=== PATIENT | female | born 1970 | race Caucasian/White ===

== ENCOUNTER 2019-08-15 15:31 | Emergency (ER) | payer OTHER ==
[~2019-08-15] VITALS: Ht 157.5 cm; Wt 58.5 kg
[~2019-08-15 15:31] MED LIST: CLONAZEPAM; CLONAZEPAM PO; FISHOIL; HYDROCODON-ACE1 EAC7; LEVOTHROID75 MCG; NAPROXEN DELAY500 M1 PO; VIT B 12; VIT D3; VIT E; VIT K
[2019-08-15] MEDS ORDERED: NOHOMEMEDICATIONS (15:42)
[2019-08-15] MEDS ORDERED: NORCO 5-325 TA1 EAC1 PO (16:54)
[2019-08-15] MEDS ORDERED: KEFLEX500 M1 PO (16:54)
[2019-08-15] MEDS ORDERED: NAPROSYN500 MG PO (16:54)
[2019-08-15 17:14] VITALS: BP 133/77
== END 2019-08-15 17:15 | disposition home or self-care (01) ==
LOC: M.ERS 15:31
DX: S02.2XXA Fracture of nasal bones, initial encounter for closed fracture (principal); S01.81XA Laceration without foreign body of other part of head, initial encounter; S16.1XXA Strain of muscle, fascia and tendon at neck level, initial encounter; F41.9 Anxiety disorder, unspecified; E03.9 Hypothyroidism, unspecified; G89.29 Other chronic pain; W18.39XA Other fall on same level, initial encounter; Y93.89 Activity, other specified; Y92.89 Other specified places as the place of occurrence of the external cause; Y99.8 Other external cause status

== ENCOUNTER 2019-09-06 16:34 | Emergency (ER) | payer OTHER ==
[~2019-09-06] VITALS: Ht 157.5 cm; Wt 49.9 kg
[~2019-09-06 16:34] MED LIST changes: +KEFLEX500 M1 PO; +NAPROSYN500 MG PO; +NOHOMEMEDICATIONS; +NORCO 5-325 TA1 EAC1 PO
[2019-09-06] MEDS ORDERED: AMOXICILLIN 50500 MG PO (16:52)
[2019-09-06 17:20] VITALS: BP 115/80
== END 2019-09-06 17:22 | disposition home or self-care (01) ==
LOC: M.ERS 16:34
DX: K04.7 Periapical abscess without sinus (principal); F41.9 Anxiety disorder, unspecified; G89.29 Other chronic pain; M54.2 Cervicalgia; E03.9 Hypothyroidism, unspecified; Z98.890 Other specified postprocedural states

== ENCOUNTER 2019-09-22 11:18 | Emergency (ER) | payer OTHER ==
[~2019-09-22] VITALS: Ht 157.5 cm; Wt 54.4 kg
[~2019-09-22 11:18] MED LIST changes: +AMOXICILLIN 50500 MG PO
[2019-09-22] MEDS ORDERED: NORCO 5-325 TA1 EAC1 PO (12:58)
[2019-09-22 14:44] VITALS: BP 146/70
--- NOTE | 2019-09-22 18:15 | EKG ---
[place] [address] ELECTROCARDIOGRAM REPORT Name: REINIER MURRAYICIPushpa Barrow Room: [facility]#: [id number] Admission: 09/22/19 Attend Phys: Discharge: 09/22/19 Date of : 70 Report #: [id number] THIS REPORT FOR: //name// [facility] ED Test Date: 2019-09-22 Test Time: 11:46:19 Pat Name: OSMAN MURRAY Department: Room: Gender: F Relationship Mgr: : 1970 Requested By: Jasson Morgan Order Number: [id number] MD: Uri Bolanos Measurements Intervals [place] Rate: 96 P: 81 CT: 116 QRS: 56 QRSD: 82 T: 62 QT: 326 QTc: 412 Interpretive Statements Sinus rhythm Borderline short CT interval Consider left ventricular hypertrophy Compared to ECG 10/09/2011 23:06:13 Sinus tachycardia no longer present Atrial premature complex(es) no longer present Electronically Signed On 09-22-2019 18:15:14 CDT by Uri Bolanos [email or web address] <ELECTRONICALLY SIGNED> By: Uri Bolanos MD, FACC 09/22/19 1815 1146 1146 Uri Bolanos MD, [facility] /EPI
== END 2019-09-22 14:45 | disposition home or self-care (01) ==
LOC: M.ERS 11:18
DX: S22.31XA Fracture of one rib, right side, initial encounter for closed fracture (principal); F41.9 Anxiety disorder, unspecified; E03.9 Hypothyroidism, unspecified; G89.29 Other chronic pain; X50.9XXA Other and unspecified overexertion or strenuous movements or postures, initial encounter; Y93.89 Activity, other specified; Y92.89 Other specified places as the place of occurrence of the external cause; Y99.8 Other external cause status

== ENCOUNTER 2019-11-13 07:06 | Emergency (ER) | payer OTHER ==
[~2019-11-13] VITALS: Ht 157.5 cm; Wt 59.0 kg
[2019-11-13 07:41] LABS: ABSOLUTE BASOPHILS 0.2 thou/uL (0.0-0.2); ABSOLUTE EOSINOPHILS 0.1 thou/uL (0.0-0.7); ABSOLUTE LYMPHOCYTES 1.4 thou/uL (0.8-5.3); ABSOLUTE MONOCYTES 0.5 thou/uL (0.0-1.2); ABSOLUTE NEUTROPHILS 4.6 thou/uL (1.6-8.1); BASOPHILS 2.6 %; EOSINOPHILS 1.6 %; HEMATOCRIT 43.8 % (37.0-47.0); HEMOGLOBIN 15.2 gm/dL (12.0-15.0); MCH 29.1 pg (26.0-34.0); MCHC 34.8 g/dL (28.0-37.0); MCV 83.6 fL (80.0-100.0); MONOCYTES 7.5 %; MPV 7.9 fl. (7.2-11.1); NUCLEATED RBCS 1 /100WBC; PLATELET COUNT* 277 thou/uL (150-400); POLYS 67.3 %; RBC 5.24 mil/uL (4.20-5.00); RDW-CV 12.9 % (10.5-14.5); WBC 6.8 thou/uL (4.0-11.0)
[2019-11-13 07:43] LABS: CALCIUM 8.9 mg/dL (8.5-10.1); CREATININE 0.7 mg/dL (0.6-1.3); POTASSIUM 3.8 mmol/L (3.5-5.1)
[2019-11-13 07:49] LABS: APTT 23.3 Seconds (25.0-31.3); PROTIME 10.3 Seconds (9.20-11.50)
[2019-11-13 07:53] LABS: ALBUMIN 3.9 g/dL (3.4-5.0); TOTAL BILIRUBIN 0.4 mg/dL (<0.1-1.0); TOTAL PROTEIN 7.5 g/dL (6.4-8.2)
[2019-11-13 08:57] VITALS: BP 117/68
--- NOTE | 2019-11-13 14:31 | EKG ---
[place] [address] ELECTROCARDIOGRAM REPORT Name: OSMAN MURRAY Room: [facility]#: [id number] Admission: 11/13/19 Attend Phys: Discharge: 11/13/19 Date of : 70 Report #: [id number] THIS REPORT FOR: //name// [facility] ED Test Date: 2019-11-13 Test Time: 07:35:28 Pat Name: OSMAN MURRAY Department: Room: Gender: F Marketing Information Manager: : 1970 Requested By: Roberto Carlos Shah Order Number: [id number] MD: Shar Preston Measurements Intervals [place] Rate: 87 P: 73 VA: 117 QRS: 57 QRSD: 88 T: 66 QT: 354 QTc: 426 Interpretive Statements Sinus rhythm Borderline short VA interval Left atrial enlargement Compared to ECG 09/22/2019 11:46:19 Atrial abnormality now present Electronically Signed On 11-13-2019 14:31:29 [employer] by Shar Preston [email or web address] <ELECTRONICALLY SIGNED> By: Shar Preston MD, [facility] 11/13/19 1431 4 Shar Preston MD, FAC /EPI
== END 2019-11-13 08:59 | disposition home or self-care (01) ==
LOC: M.ERS 07:06
PROVIDERS: Family Medicine
DX: R42 Dizziness and giddiness (principal); F41.9 Anxiety disorder, unspecified; E03.9 Hypothyroidism, unspecified; G89.29 Other chronic pain

== ENCOUNTER 2019-12-02 16:41 | Emergency (ER) | payer OTHER ==
[~2019-12-02] VITALS: Ht 157.5 cm; Wt 59.0 kg
[2019-12-02 16:53] VITALS: BP 149/87
[2019-12-02] MEDS ORDERED: MELOXICAM7.5 MG PO (17:32)
== END 2019-12-02 17:43 | disposition home or self-care (01) ==
LOC: M.ERS 16:41
DX: S63.681A Other sprain of right thumb, initial encounter (principal); G89.29 Other chronic pain; E03.9 Hypothyroidism, unspecified; Z88.6 Allergy status to analgesic agent; X58.XXXA Exposure to other specified factors, initial encounter; Y93.89 Activity, other specified; Y92.89 Other specified places as the place of occurrence of the external cause; Y99.8 Other external cause status